=== PATIENT | female | born 1985 | race Caucasian/White ===

== ENCOUNTER → 2018-04-06 15:53 | Outpatient (CLI) | payer OTHER, SELFPAY ==
[2018-04-07 12:45] LABS: Strep Grp B PCR POS for Grp B Strep
== END ==
PROVIDERS: PCP Obstetrics & Gynecology; Visit Provider Obstetrics & Gynecology
DX: Z34.00 Encounter for supervision of normal first pregnancy, unspecified trimester (principal)
CPT/HCPCS: 87653

== ENCOUNTER 2018-04-20 07:22 | Inpatient (IN) | payer OTHER, SELFPAY ==
[2018-04-20] MEDS: LACTATED RINGERS 1,000 ML 125 ML IV ×2 (08:00→14:26)
[2018-04-20] MEDS: OXYTOCIN PREMIX 30 UNIT/500 ML PLAST..BAG IV (08:00)
[2018-04-20 08:29] LABS: Add Manual Diff / Slide Review NO; Basophils Percent Auto 0.8 % (0-2); Eosinophils Percent Auto 1.7 % (2-4); Hematocrit 33.1 % (36-46); Hemoglobin 11.9 g/dL (12.0-16.0); Mean Corpuscular HGB Conc 36.1 % (30-36); Mean Corpuscular Hemoglobin 30.9 PG (26-34); Mean Corpuscular Volume 85.7 fL (80-100); Monocytes Percent Auto 4.3 % (3-14); Neutrophils Absolute Auto 7600 /uL (3000-5900); Neutrophils Percent Auto 79.2 % (50-75); Platelet Count 187 X10^3/uL (150-400); Red Blood Cell Count 3.86 X10^6/uL (4.0-5.2); Red Cell Distribution Width 13.5 % (11.6-14.8); White Blood Cell Count 9.6 X10^3/uL (4.5-11.0)
[2018-04-20] MEDS: PENICILLIN G POTASSIUM 5,000,000 UNIT in DEXTROSE 5% IN WATER 250 ML IV (08:52)
[2018-04-20 09:39] VITALS: BP 127/75
[2018-04-20] MEDS: PENICILLIN G POTASSIUM 3,000,000 UNIT/50 ML FROZ.PIGGY 100 UNIT IV ×2 (12:53→17:08)
--- NOTE | 2018-04-20 20:40 | PM.OBPRVD ---
Events: Induced HTN (Pre hypertension) and Labor Induction Delivery date: 04/20/18 Intrapartal events: Intolerance Induction method: per pitocin protocol Delivery augmentation: rupture of membranes Delivery monitor: external FHT Route of delivery: vacuum extraction Indication for instrumentation: nonreassuring FHR tracing Laceration description: Labial Delivery repair: vicryl and chromic Estimated blood loss (mL): 250 Anesthesia type: Epidural Complications: 2 vessel cord Narrative: Patient was complete and pushed for 14 min. Vacuum was applied due to deep variable decelerations with pushing. With 3 contractions, the vertex delivered over an intact perineum at 194. No nuchal cord. The remainder of the body delivered without difficulty and was placed on mom's abdomen. The cord was double clamped and cut after it stopped pulsing. Cord bloods were obtained. The placenta delivered intact with a 2 vessel cord at 1951. Fundus massaged to firm. Pitocin given in the IV fluids. Bilateral labial lacerations were repaired with 2 0 chromic in the usual fashion. A first-degree vaginal laceration was repaired with 2 0 Vicryl in the usual fashion. Hemostasis was achieved. Apgars 9 at 1 min and 9 at 5 min. . Mom and infant stable to recovery. Plan for aftercare: Routine care
--- NOTE | 2018-04-20 20:51 | P.HPOB_ITS ---
OB HPI Date/Time Date of admission: 04/20/18 Date Patient Seen: 04/20/18 Time Patient Seen: 08:01 History of Present Illness Chief complaint: OBSERVATION : 1 Para: 0 Estimated Date of Delivery: 05/04/18 Estimated Gestational Age (weeks): 38 Narrative: Erma Nelson is a 32 year old female 1 para 0 at 38 weeks gestation for induction of labor Comments: IV of 2 vessel cord Pre hypertension Indications Indication for induction OB: medical complication (Hypertension) and other (2 vessel cord) History of Present care: good care Dating criteria: LMP confirmed by 1st trimester US Ultrasounds: normal 1st trimester US and abnormal US findings (2 vessel cord) Obstetrical complications: other (2 vessel cord) Medical complications: cardiovascular Narrative: Hypertension Preadmission Labs Blood type: O (+) positive -: Antibody screen: negative, GBS status: positive, HBsAG: negative, HIV: negative and RPR/VDLR: negative -: Chlamydia screen: not detected and Gonorrhea screen: not detected -: Rubella: immune HCT: 33 HCAB: negative PAP: Normal Cell-free DNA: CVS equivocal Amniocentesis normal male Urine: Negative Evaluation Evaluation Baseline heart rate: 125 Variability: Moderate (11-25) monitor accelerations: Present monitor decelerations: Absent Category of Tracing: I Cervical dilation (cm): 3 Cervical effacement (%): 75 station: -1 Laboratory results: Laboratory Tests 04/20/18 04/20/18 08:00 08:00 WBC 9.6 RBC 3.86 L Hgb 11.9 L Hct 33.1 L MCV 85.7 MCH 30.9 MCHC 36.1 H RDW 13.5 Plt Count 187 Neut % (Auto) 79.2 H Lymph % (Auto) 14.0 L Owsley % (Auto) 4.3 Eos % (Auto) 1.7 L Baso % (Auto) 0.8 Neut # (Auto) 7600 H Blood Type O Positive Antibody Screen Negative PFSH Surgical History History of third molar tooth extraction Family History Father Age: 60 Essential hypertension Grandfather Age: 83 Heart disease Essential hypertension High cholesterol Grandmother Age: 80 Heart disease Essential hypertension Mental health problem Gout, unspecified cause, unspecified chronicity, unspecified site Grandmother Essential hypertension Social History household members: spouse pets and animals: Yes education level: master's degree occupational status: employed seatbelt use: always water heater temp set < 120 deg: Yes working smoke detector in home: Yes fire extinguisher in home: Yes carbon monox detector in home: Yes firearms in home: No Smoking Status: Never smoker substance use type: does not use well-balanced diet: about half the time daily servings fruits/veg: other caffeine: Yes (2+ caffeine drinks per day/diet only) eating out: rarely or never frequency: other duration: other Meds Home Medications Medication Instructions Recorded Confirmed Type escitalopram oxalate [Lexapro] 10 mg PO QDAY #90 tab 06/26/17 Rx vit-iron fum-folic ac 1 cap PO QDAY #90 cap 06/26/17 04/20/18 Rx [Mynatal] estradiol 2 mg PO BID #0 09/07/17 History progesterone micronized [Crinone] 1 esther VAGINAL QAM #0 09/07/17 History ondansetron [Zofran ODT] 4 mg SUBLINGUAL Q6HP PRN #15 odt 10/27/17 Rx zolpidem [Ambien] 10 mg PO HS #30 tab 01/19/18 04/20/18 Rx metoprolol tartrate 100 mg tablet 100 mg PO Q12H #30 tab 04/06/18 04/20/18 Rx escitalopram oxalate 04/20/18 History Allergies Allergy/AdvReac Type Severity Reaction Status Date / Time No Known Drug Allergies Allergy Verified 04/20/18 09:41 Review of Systems Review of Systems All systems reviewed & are unremarkable except as noted in HPI and below Exam Narrative Exam Narrative: Generally: Well-developed, well-nourished white female, no acute distress Fundal height: 39 cm Lungs: Clear to auscultation bilaterally Cardiovascular: Regular rate and rhythm Extremities: Negative Homans, trace edema, 1+ DTRs Objective Labs Result Diagrams: 04/20/18 08:00 Labs: Laboratory Results - last 24 hr 04/20/18 04/20/18 08:00 08:00 WBC 9.6 RBC 3.86 L Hgb 11.9 L Hct 33.1 L MCV 85.7 MCH 30.9 MCHC 36.1 H RDW 13.5 Plt Count 187 Neut % (Auto) 79.2 H Lymph % (Auto) 14.0 L Owsley % (Auto) 4.3 Eos % (Auto) 1.7 L Baso % (Auto) 0.8 Neut # (Auto) 7600 H Blood Type O Positive Antibody Screen Negative Assessment and Plan Plan: Plan: Assessment: 32-year-old 1 para 0 at 38 weeks gestation with pre hypertension and a 2 vessel cord for induction of labor GBS positive Plan: Pitocin per protocol 2 Epidural as necessary A ROM when able Expectant management to spontaneous vaginal delivery
[2018-04-21] MEDS: IBUPROFEN 600 MG TABLET PO ×4 (02:18→20:00)
[2018-04-21 06:57] LABS: Hematocrit 31.7 % (36-46); Hemoglobin 11.2 g/dL (12.0-16.0)
[2018-04-21] MEDS: PRENATAL VIT,CALC/IRON/FOLIC 1 TABLET 1 TAB PO (08:17)
[2018-04-21] MEDS: ESCITALOPRAM 10 MG TABLET PO (08:18)
[2018-04-21] MEDS: METOPROLOL 50 MG TABLET 100 MG PO ×2 (08:18→21:47)
[2018-04-21] MEDS: DERMOPLAST SPRAY 20% 60 ML 1 SPRAY TOP (14:13)
[2018-04-22] MEDS: IBUPROFEN 600 MG TABLET PO ×2 (05:18→14:07)
[2018-04-22] MEDS: PRENATAL VIT,CALC/IRON/FOLIC 1 TABLET 1 TAB PO (08:39)
[2018-04-22] MEDS: METOPROLOL 50 MG TABLET 100 MG PO (08:52)
[2018-04-22] MEDS: DOCUSATE 100 MG CAPSULE PO (09:03)
--- NOTE | 2018-04-22 10:25 | PM.OBPN.1 ---
Subjective - OB Interval history: Patient is a 32-year-old 1 para 1 day 1. Status post vacuum assisted vaginal delivery Patient comments: no complaints, pain well controlled and other (Bleeding tapering) baby status: doing well and nursing well feeding status: exclusively breast feeding Date Patient Seen: 04/21/18 Time Patient Seen: 13:26 Exam Narrative Exam Narrative: Generally: Patient is sitting up in bed, holding infant, no acute distress Fundus: Firm at U -2 Extremities: Trace edema, negative Homans Objective Labs Result Diagrams: 04/21/18 06:25 Assessment & Plan (1) Status post vacuum-assisted vaginal delivery: Status: Acute Current Visit: Yes (2) Essential hypertension: Status: Acute Assessment and plan: Current Visit: Yes (3) Two vessel cord: Status: Acute Assessment and plan: Assessment: 32-year-old 1 para 1 day 1. Status post vacuum assisted vaginal delivery after induction of labor secondary to 2 vessel cord and hypertension Mom doing very well Plan: Continue metoprolol Continue routine care Anticipate discharge 04/22/2018 Current Visit: Yes Plan day: 1 plan OB: routine care Time Spent With Patient Total time spent is greater than 50% in coordination of care (as documented) at patient's floor/unit and/or counseling patient: 20 minutes 25 - 35 minutes
--- NOTE | 2018-04-22 10:31 | PM.OBDS.1 ---
Discharge Providers Date of admission: 04/20/18 07:22 Primary care physician: Katherine Soriano MD Consults: 04/20/18 20:47 Consult to Speech Pathology Supervisor Routine Comment: Discharge provider: Katherine Soriano MD Discharge Date: 04/22/18 Summary Date Patient Seen: 04/22/18 Time Patient Seen: 10:34 Peripartum Data Delivery Method: Assisted Delivery (Vacuum assist) Laceration description: Labial Episiotomy description: None Procedures: Vacuum assisted vaginal delivery complications: none Discharge Diagnosis (1) Status post vacuum-assisted vaginal delivery: Status: Acute (2) Essential hypertension: Status: Acute (3) Two vessel cord: Status: Acute Status at Discharge Cognitive/behavioral status at discharge: Normal Functional status at discharge: independent ambulation Overall status at discharge: patient is progressing back to baseline Time Spent with Patient Total time spent providing and/or coordinating discharge services: 20 min Less than 30 minutes Specific discharge activities: No intercourse Patient to call with fever, chills, or bleeding vaginally more than a pad in an hour Objective Labs Result Diagrams: 04/21/18 06:25 Discharge Plan Discharge Plan Patient Disposition: Home, Self-Care Discharge comment: Call with fever, chills or bleeding vaginally more than a pad in an hour Discharge Med Rec/Prescriptions Prescriptions: Continue vit-iron fum-folic ac [Mynatal] 1 EACH capsule 1 cap PO QDAY Qty: 90 RF: 3 metoprolol tartrate 100 mg tablet 100 mg PO Q12H Qty: 30 RF: 2 escitalopram oxalate 10 mg tablet 10 mg PO DAILY RF: 0 No Action zolpidem [Ambien] 10 MG tablet 10 mg PO HS Qty: 30 RF: 2 Follow up/Referrals: Katherine Soriano MD [Primary Care Provider] - 6 Weeks Provider Discharge Instructions Diet: Diet as Tolerated Activity: No intercourse No lunging Wound Care Report to your healthcare provider any signs of infection, such as:: chills, fever, increased pain and unusual drainage Visit Report/Discharge Packet Instructions: Labor and Delivery, Vaginal Discharge Data Primary Care Provider: Katherine Soriano Attending Provider: Katherine Soriano Admit Date/Time: 04/20/18 07:22
[2018-04-22 11:32] VITALS: BP 132/79; PULSE 78; RESP 16; TEMP 36.8
== END 2018-04-22 14:24 | disposition home or self-care (01) | DRG 774 ==
PROVIDERS: Admitting Provider Obstetrics & Gynecology; PCP Obstetrics & Gynecology; Visit Provider Obstetrics & Gynecology
DX: O10.92 Unspecified pre-existing hypertension complicating childbirth (principal); Z37.0 Single live birth; Z3A.38 38 weeks gestation of pregnancy; O69.89X0 Labor and delivery complicated by other cord complications, not applicable or unspecified; O99.824 Streptococcus B carrier state complicating childbirth; O76 Abnormality in fetal heart rate and rhythm complicating labor and delivery; O70.0 First degree perineal laceration during delivery
CPT/HCPCS: 01967; 59050; 59400; 76815; 85014; 85018; 85025; 86850; 86900; 86901; G0379; J2540; J2590

== ENCOUNTER → 2018-05-03 14:37 | Outpatient (CLI) | payer OTHER, SELFPAY ==
[2018-05-03 15:00] LABS: Add Manual Diff / Slide Review NO; Eosinophils Percent Auto 3.9 % (2-4); Hemoglobin 13.3 g/dL (12.0-16.0); Lymphocytes Percent Auto 22.7 % (25-40); Mean Corpuscular HGB Conc 34.2 % (30-36); Mean Corpuscular Volume 87.5 fL (80-100); Monocytes Percent Auto 6.5 % (3-14); Neutrophils Absolute Auto 4600 /uL (3000-5900); Neutrophils Percent Auto 65.9 % (50-75); Platelet Count 297 X10^3/uL (150-400); Red Blood Cell Count 4.46 X10^6/uL (4.0-5.2); Red Cell Distribution Width 13.5 % (11.6-14.8)
[2018-05-03 15:17] LABS: Alanine Aminotransferase 41 IU/L (9-52); Albumin 3.8 g/dL (3.5-5.0); Albumin Globulin Ratio 1.4 (1.0-2.8); Alkaline Phosphatase 120 U/L (38-126); Aspartate Aminotransferase 21 IU/L (14-36); Bilirubin Total 0.6 mg/dL (0.2-1.3); Blood Urea Nitrogen 3 mg/dL (7-17); Calcium 9.5 mg/dL (8.4-10.2); Carbon Dioxide 29 mmol/L (22-32); Chloride 103 mmol/L (98-107); Estimated Glomerular Filt Rate > 60.0 mL/min (>60); Globulin 2.8 g/dL (1.7-4.1); Glucose 83 mg/dL (70-100); HEMOLYSIS < 15 (0-50); Potassium 4.4 mmol/L (3.4-5.1); Sodium 141 mmol/L (137-145); Total Protein 6.6 g/dL (6.3-8.2)
== END ==
PROVIDERS: PCP Obstetrics & Gynecology; Visit Provider Internal Medicine
DX: I10 Essential (primary) hypertension (principal)
CPT/HCPCS: 36415; 80053; 85025

== ENCOUNTER → 2019-06-15 08:03 | Outpatient (CLI) | payer OTHER, SELFPAY ==
[2019-06-15 09:20] LABS: Add Manual Diff / Slide Review NO; Basophils Absolute Auto 100 /uL (0-100); Eosinophils Absolute Auto 300 /uL (0-450); Eosinophils Percent Auto 5.3 % (2-4); Hematocrit 41.2 % (36-46); Hemoglobin 14.5 g/dL (12.0-16.0); Lymphocytes Absolute Auto 1000 /uL (1100-4500); Lymphocytes Percent Auto 18.8 % (25-40); Mean Corpuscular HGB Conc 35.2 % (30-36); Mean Corpuscular Hemoglobin 30.3 PG (26-34); Monocytes Absolute Auto 300 /uL (0-900); Monocytes Percent Auto 5.8 % (3-14); Neutrophils Absolute Auto 3700 /uL (1500-7000); Neutrophils Percent Auto 69.1 % (50-75); Platelet Count 226 X10^3/uL (150-400); Red Blood Cell Count 4.79 X10^6/uL (4.0-5.2); Red Cell Distribution Width 13.2 % (11.6-14.8); White Blood Cell Count 5.4 X10^3/uL (4.5-11.0)
[2019-06-15 09:35] LABS: Alanine Aminotransferase 19 IU/L (9-52); Albumin Globulin Ratio 1.2 (1.0-2.8); Alkaline Phosphatase 79 U/L (38-126); Aspartate Aminotransferase 21 IU/L (14-36); Bilirubin Total 0.8 mg/dL (0.2-1.3); Blood Urea Nitrogen 9 mg/dL (7-17); Carbon Dioxide 27 mmol/L (22-32); Chloride 104 mmol/L (98-107); Cholesterol 171 mg/dL (140-199); Estimated Glomerular Filt Rate > 60.0 mL/min (>60); Globulin 3.4 g/dL (1.7-4.1); Glucose 91 mg/dL (70-100); HEMOLYSIS < 15 (0-50); Potassium 4.2 mmol/L (3.4-5.1); Sodium 137 mmol/L (137-145); Total Protein 7.4 g/dL (6.3-8.2)
[2019-06-15 09:52] LABS: HDL Cholesterol 49 mg/dL (40-60); LDL Cholesterol Calculated 99 mg/dL (<100); Triglycerides 116 mg/dL (35-150)
[2019-06-15 10:04] LABS: TSH w/ Reflex to FT4 1.46 uIU/mL (0.47-4.68)
== END ==
PROVIDERS: PCP Family Medicine; Visit Provider Family Medicine
DX: E66.9 Obesity, unspecified (principal); I10 Essential (primary) hypertension; Z00.00 Encounter for general adult medical examination without abnormal findings; Z13.6 Encounter for screening for cardiovascular disorders; Z13.29 Encounter for screening for other suspected endocrine disorder
CPT/HCPCS: 36415; 80053; 80061; 84443; 85025

== ENCOUNTER → 2020-06-27 10:46 | Outpatient (CLI) | payer OTHER, SELFPAY ==
[2020-06-27 12:22] LABS: Alanine Aminotransferase 18 IU/L (<35); Albumin 4.3 g/dL (3.5-5.0); Albumin Globulin Ratio 1.6 (1.0-2.8); Alkaline Phosphatase 69 U/L (38-126); Aspartate Aminotransferase 23 IU/L (14-36); BUN Creatinine Ratio 14.8 (6-22); Bilirubin Total 1.3 mg/dL (0.2-1.3); Blood Urea Nitrogen 9 mg/dL (7-17); Calcium 9.4 mg/dL (8.4-10.2); Carbon Dioxide 27 mmol/L (22-32); Chloride 102 mmol/L (98-107); Estimated Glomerular Filt Rate > 60.0 mL/min (>60); Globulin 2.7 g/dL (1.7-4.1); Glucose 80 mg/dL (70-100); HEMOLYSIS < 15 (0-50); Potassium 4.3 mmol/L (3.4-5.1); Sodium 137 mmol/L (137-145)
== END ==
PROVIDERS: PCP Family Medicine; Referring Provider Family Medicine; Visit Provider Family Medicine
DX: I10 Essential (primary) hypertension (principal)
CPT/HCPCS: 36415; 80053

== ENCOUNTER → 2021-07-17 09:14 | Outpatient (CLI) | payer OTHER, SELFPAY ==
[2021-07-17 09:37] LABS: Add Manual Diff / Slide Review NO; Basophils Absolute Auto 100 /uL (0-100); Basophils Percent Auto 1.1 % (0-2); Eosinophils Absolute Auto 300 /uL (0-450); Eosinophils Percent Auto 5.6 % (2-4); Hematocrit 38.9 % (36-46); Hemoglobin 13.1 g/dL (12.0-16.0); Lymphocytes Absolute Auto 1300 /uL (1100-4500); Lymphocytes Percent Auto 24.1 % (25-40); Mean Corpuscular HGB Conc 33.8 % (30-36); Mean Corpuscular Volume 88.9 fL (80-100); Monocytes Absolute Auto 400 /uL (0-900); Monocytes Percent Auto 6.8 % (3-14); Neutrophils Absolute Auto 3400 /uL (1500-7000); Neutrophils Percent Auto 62.4 % (50-75); Platelet Count 203 X10^3/uL (150-400); Red Blood Cell Count 4.38 X10^6/uL (4.0-5.2); Red Cell Distribution Width 12.9 % (11.6-14.8); White Blood Cell Count 5.5 X10^3/uL (4.5-11.0)
[2021-07-17 09:56] LABS: Alanine Aminotransferase 17 IU/L (<35); Albumin 3.9 g/dL (3.5-5.0); Albumin Globulin Ratio 1.4 (1.0-2.8); Alkaline Phosphatase 64 U/L (38-126); Aspartate Aminotransferase 21 IU/L (14-36); Bilirubin Total 1.2 mg/dL (0.2-1.3); Blood Urea Nitrogen 7 mg/dL (7-17); Calcium 9.3 mg/dL (8.4-10.2); Carbon Dioxide 24 mmol/L (22-32); Chloride 108 mmol/L (98-107); Cholesterol 149 mg/dL (140-199); Estimated Glomerular Filt Rate > 60.0 mL/min (>60); Globulin 2.8 g/dL (1.7-4.1); Glucose 95 mg/dL (70-100); HDL Cholesterol 68 mg/dL (40-60); HEMOLYSIS < 15 (0-50); LDL Cholesterol Calculated 72 mg/dL (<100); Potassium 4.8 mmol/L (3.4-5.1); Sodium 137 mmol/L (137-145); Total Protein 6.7 g/dL (6.3-8.2); Triglycerides 44 mg/dL (35-150)
[2021-07-17 11:11] LABS: Creatinine Urine Random 168.8 mg/dL
[2021-07-17 11:14] LABS: Microalbumi Creatinin Ratio Ur 6.5 ug/mg CR (<30); Microalbumin Urine Random 1.1 mg/dL (0-1.6)
[2021-07-17 12:30] LABS: TSH w/ Reflex to FT4 0.67 uIU/mL (0.47-4.68)
[2021-07-17 12:53] LABS: Prolactin 14.6 ng/mL (3.0-18.6)
== END ==
PROVIDERS: PCP Family Medicine; Referring Provider Family Medicine; Visit Provider Family Medicine
DX: E78.5 Hyperlipidemia, unspecified (principal); I10 Essential (primary) hypertension; N64.3 Galactorrhea not associated with childbirth
CPT/HCPCS: 36415; 80053; 80061; 82043; 82570; 84146; 84443; 85025

== ENCOUNTER → 2021-09-04 12:54 | Outpatient (CLI) | payer OTHER, SELFPAY ==
--- NOTE | 2021-09-04 12:54 | DI.US.S_ITS ---
PROCEDURE: US ABDOMEN LIMITED INDICATIONS: PALPABLE LUMP ANTERIOR LUQ TECHNIQUE: Real-time focused scanning was performed of the abdomen, with image documentation. COMPARISON: None. FINDINGS: Scanning is performed at the area of the palpable lump involving the left upper quadrant of the abdomen. At this site, there is a nonvascular ovoid focus that measures 4.1 x 1 x 6.3 cm. No abnormal vascularity can be seen. This focus demonstrates an echogenicity similar to the surrounding normal subcutaneous fat. IMPRESSION: These imaging findings are most compatible with a benign lipoma at the area of clinical concern. Dictated by: Jm Dias M.D. on 09/04/2021 at 12:50 Approved by: Jm Dias M.D. on 09/04/2021 at 12:51
== END ==
PROVIDERS: PCP Family Medicine; Referring Provider Registered Nurse Diabetes Educator; Visit Provider Registered Nurse Diabetes Educator
DX: R19.02 Left upper quadrant abdominal swelling, mass and lump (principal)
CPT/HCPCS: 76705

== ENCOUNTER → 2021-11-11 09:20 | Outpatient (CLI) | payer OTHER, SELFPAY ==
[2021-11-11 12:38] LABS: COVID19 -Nasal RAPID Negative (Negative)
== END ==
PROVIDERS: PCP Family Medicine; Visit Provider Surgery
DX: Z01.812 Encounter for preprocedural laboratory examination (principal); Z20.822 Contact with and (suspected) exposure to COVID-19
CPT/HCPCS: 87635; C9803

== ENCOUNTER 2021-11-12 09:16 | Day surgery (SDC) | payer OTHER, SELFPAY ==
[2021-11-07 13:56] VITALS: BMI 25.6
[2021-11-12] VITALS (8 sets, daily range): BP systolic 93–143; BP diastolic 53–92; PULSE 58–78; RESP 10–18; TEMP 36.4–37.3; O2SAT 98–100; BMI 25.6
--- NOTE | 2021-11-12 | PATH_ITS ---
[facility] Accession Number: [id number] . 01 Material submitted: . soft tissue - ABDOMINAL WALL . 01 Clinical history: . SOFT TISSUE MASS 11/20 PER LANETTE, SITE IS ABDOMINAL WALL, ADHERED TO LEFT RECTAL MUSCLE / HS . 01 Diagnosis: Abdominal Wall, Excision: Mature adipose tissue, consistent with lipoma. [facility] 11/20/2021 1745 Local . 01 Electronically signed: . Prakash Castaneda MD, Dermatopathologist NPI- [id number] . 01 Gross description: . NO SITE DESIGNATED: Received in formalin is 1 fragment of [place] soft tissue measuring 9.0 x 3.0 x 1.5 cm. Tissue is inked. Specimen is sectioned and submitted in outside energy sales representatives sections in 4 cassettes. /[place] 11/13/20211913 Local . 01 Pathologist provided ICD-10: D17.9 . 01 CPT . 657580 Performed at: 01 [facility] [address] [place] [address], [place], [place] [id number] MD Dedrcik Romeo MD Phone: [phone]
[2021-11-12] MEDS: LACTATED RINGERS 1,000 ML 100 ML IV (09:52)
--- NOTE | 2021-11-12 10:51 | PM.HP.1 ---
History of Present Illness History of Present Illness Date Patient Seen: 11/12/21 Time Patient Seen: 10:51 Chief complaint: SDC Narrative: 36F with a symptomatic soft tissue masss of left abdominal wall here for elective excision. No interval changes in health. Patient History Medical History Anxiety (02/22/14) Hypertension (09/15/13) Migraine headache (09/15/13) Obesity (BMI 30-39.9) Surgical History History of third molar tooth extraction Family & Social History Family History Father Age: 64 Essential hypertension Grandfather Age: 87 Heart disease Essential hypertension High cholesterol Grandmother Age: 84 Heart disease Essential hypertension Mental health problem Gout, unspecified cause, unspecified chronicity, unspecified site Grandmother Essential hypertension Social History: household members spouse Tobacco & Substance use: Smoking Status Never smoker alcohol intake never Substance Use Type does not use Meds Home Medications and Allergies Home Medications Medication Instructions Recorded Confirmed Type metoprolol succinate 200 mg 200 mg PO DAILY #90 tab 08/26/21 11/12/21 Rx tablet,extended release 24 hr multivitamin 1 tab PO DAILY 10/09/21 11/12/21 History zolpidem 10 mg tablet See Rx Instructions .ROUTE 10/30/21 11/12/21 Rx .COMPLEX #30 tab Allergies Allergy/AdvReac Type Severity Reaction Status Date / Time No Known Drug Allergies Allergy Verified 11/12/21 09:25 Exam Vital Signs (past 8 hours): - 11/12/21 09:33 11/12/21 09:35 Temperature 99.1 F Pulse Rate 78 Respiratory Rate 14 Blood Pressure 143/92 H 140/80 Pulse Oximetry 100 Oxygen Delivery Method Room Air Narrative Exam Narrative: Gen-Adult woman alert Abdomen-2 cm palpable soft tissue mass left abdominal wall marked with the patient Assessment & Plan Assessment and plan (1) Neoplasm of unspecified behavior of bone, soft tissue, and skin: Status: Acute Assessment & Plan narrative: 36F with a symptomatic left abdominal wall soft tissue mass here for elective excision. Operation again discussed including risks of bleeding, infection, damage to surrounding structures, seroma. She is in agreement will proceed. Time Spent With Patient Critical Care time: I spent a total of [] minutes of critical care time on this patient's care today; this time is exclusive of procedural time.
[2021-11-12] MEDS: CEFAZOLIN 2 GM/20 ML SYRINGE IV (11:00)
--- NOTE | 2021-11-12 11:09 | SUR.OPER ---
Supine on padded OR bed, head on pillow, arms secured on padded arm boards at <90 degrees abduction, legs uncrossed, safety belt at thigh, tape over blanket over lower legs. Patients glasses on patient into OR per patient request. Glasses then placed into hospital designated black glass case with patient label and brought with patient to PACU.
[2021-11-12] MEDS: BUPIVACAINE 0.25% (PF) VIAL 30 ML INJ (11:13)
--- NOTE | 2021-11-14 11:03 | PM.OP.1 ---
Operative Date/Time/Diagnoses Date of procedure: 11/12/21 Time of procedure: 11:03 Pre-op diagnosis: Abdominal soft tissue mass 5cm Post-op diagnosis: same Procedure & Clinicians Procedure: Excision of soft tissue abdominal wall mass Same procedure as scheduled: Yes Indications: Symptomatic abdominal wall mass Surgeon: Dillon Paredes Anesthesia Type: General Operative Notes Findings: 5 cm soft tissue mass appearance consistent with lipoma Specimen(s): other (Soft tissue mass of abdominal wall) Estimated Blood Loss (mL): 10 Procedure in detail: Patient was brought to the operating room placed supine on the table. Bilateral lower extremity compression devices were applied. She received antibiotic prior to skin incision. The general anesthesia was induced she was intubated with an LMA. She was prepped and draped sterile fashion. Time-out performed. Local anesthetic was infiltrated into the skin of the left abdominal wall over the palpable abdominal wall mass. Incision was made in a transverse fashion the subcutaneous tissues were divided. There was a approximately 5 cm encapsulated soft tissue mass that was deep within the abdominal wall and adherent to the left rectus muscle. The mass was dissected off the anterior sheath of the rectus muscle and was removed in its entirety and passed off the field as specimen. Hemostasis was achieved. The anterior sheath of the rectus was closed in a running fashion with Vicryl suture. Subcutaneous tissues were reapproximated with Vicryl sutures skin closed with Monocryl followed by Dermabond. Tolerated the procedure well was transferred to recovery in stable condition. Complications: none Post-operative Condition: stable Disposition: same day surgery
== END 2021-11-12 12:50 | disposition home or self-care (01) ==
PROVIDERS: PCP Family Medicine; Referring Provider Surgery; Visit Provider Surgery
PROC: (CPT 22901; principal; 2021-11-12 10:45)
DX: D17.1 Benign lipomatous neoplasm of skin and subcutaneous tissue of trunk (principal); F41.9 Anxiety disorder, unspecified; I10 Essential (primary) hypertension; G43.909 Migraine, unspecified, not intractable, without status migrainosus
CPT/HCPCS: 22901; 81025; 82962; J0690; J1100; J1885; J2250; J2405; J2704; J3010